=== PATIENT | male | born 1955 | race Asian ===

== ENCOUNTER 2019-02-16 09:55 | Emergency (ER) | payer BC ==
[~2019-02-16] VITALS: Ht 180.3 cm; Wt 77.6 kg
[2019-02-16 10:03] VITALS: Ht 180.3 cm; Wt 77.6 kg
[2019-02-16 11:28] LABS: AMPHETAMINE QUAL UR NONE DETECTED (See below)
[2019-02-16 11:34] LABS: BASOPHIL % 0.1 % (0-2); PLATELET COUNT 245 x10^3mcL (130-400); RED CELL DISTRIBUTION WIDTH 12.5 % (11.5-14.5)
[2019-02-16 11:47] LABS: CALCIUM 9.8 mg/dL (8.5-10.1); CARBON DIOXIDE 25.7 mmol/L (21-32); CHLORIDE SERUM 107 mmol/L (98-107); GFR1 > 60 mL/min; GLUCOSE SERUM 124 mg/dL (74-106); POTASSIUM SERUM 4.2 mmol/L (3.5-5.1); SODIUM SERUM 141 mmol/L (136-145)
[2019-02-16 11:48] LABS: UA SPECIFIC GRAVITY 1.015 (1.005-1.035); microscopic required? YES; urine erythrocyte NEGATIVE (NEGATIVE)
[2019-02-16 11:59] LABS: ALBUMIN 3.7 g/dL (3.4-5.0); ALKALINE PHOSPHATASE 63 U/L (46-116); ALT/SGPT 28 U/L (16-63); AMYLASE 48 U/L (25-115); AST/SGOT 16 U/L (15-37); BILIRUBIN TOTAL 1.16 mg/dL (0.20-1.00); CHOLESTEROL 194 mg/dL (<200); HDL CHOLESTEROL 43 mg/dL (40-60); LIPASE 108 IU/L (73-393); MAGNESIUM 1.9 mg/dL (1.8-2.4); T4(THYROXINE) 6.2 ug/dL (4.7-13.3); TOTAL PROTEIN, SERUM 7.7 g/dL (6.4-8.2)
[2019-02-16 15:36] VITALS: BP 149/93
== END 2019-02-16 15:37 | disposition left against medical advice (07) ==
LOC: ED 09:55
PROVIDERS: Emergency Medicine
DX: S13.4XXA Sprain of ligaments of cervical spine, initial encounter (principal); S00.33XA Contusion of nose, initial encounter; S09.8XXA Other specified injuries of head, initial encounter; R55 Syncope and collapse; M47.812 Spondylosis without myelopathy or radiculopathy, cervical region; Z98.890 Other specified postprocedural states; Z88.6 Allergy status to analgesic agent; Z88.8 Allergy status to other drugs, medicaments and biological substances; W18.11XA Fall from or off toilet without subsequent striking against object, initial encounter; Y93.89 Activity, other specified; Y92.89 Other specified places as the place of occurrence of the external cause; Y99.8 Other external cause status
CPT/HCPCS: 36415; 82962; 83880; Q0092